=== PATIENT | male | born 1945 | race Caucasian/White ===

== ENCOUNTER 2017-12-03 04:00 | Inpatient (IN) ==
[~2017-12-03 04:00] MED LIST: DEXTROSE 50% 25 GM/50 ML VIAL IV PRN; GLUCAGON 1 MG VIAL IM PRN; NITROGLYCERIN SL 0.4 MG TABLET SL PRN
[2017-12-03 14:56] LABS: Basophils # 0.1 10*3/uL (0.0-0.2); Basophils % 1.3 % (0.0-0.8); Eosinophils # 0.2 10*3/uL (0.0-0.87); Eosinophils % 2.4 % (0.00-10.9); Hemoglobin 15.1 GM/DL (14.0-18.0); Immature Granulocytes % 0.5 %; Immature Granulocytes Absolute 0.04 #; Lymphocytes # 1.7 10*3/uL (1.4-4.0); Lymphocytes % 21.5 % (21.2-54.2); Mean Corpuscular HGB Conc 33.6 GM/DL (32-36); Mean Corpuscular Hemoglobin 32 PG (27-34); Mean Corpuscular Volume 94.5 FL (87-102); Mean Platelet Volume 9.7 FL (9.6-12.0); Monocytes # 0.6 10*3/uL (0.11-0.8); Monocytes % 7.8 % (1.7-12.7); Neutrophils # 5.3 10*3/uL (1.4-7.4); Neutrophils % 66.5 % (38.7-73.9); Platelet Count 187 T/CUMM (130-400); Red Blood Count 4.76 MC/CUMM (3.8-5.5); Red Cell Distribution Width 12.8 % (9.3-17.3); White Blood Count 7.9 T/CUMM (4-12)
[2017-12-03] MEDS ORDERED: SODIUM CHLORIDE 0.9% 1,000 ML IV SCH (15:00)
[2017-12-03 15:36] LABS: Bilirubin,Total 0.4 MG/DL (0.2-1.0); Calcium 8.8 MG/DL (8.5-10.1); Osmolality,Calculated 282.4 MOS/KG (273-304)
[2017-12-03 16:26] LABS: ABG Base Excess 0.8 MMOL/L (-2.5-2.5); ABG HCO3 24.6 MMOL/L (20-26); ABG Oxygen Saturation 95.8 % (95-100); ABG PCO2 36.9 MM HG (35-48); ABG PH 7.441 (7.35-7.45); ABG PO2 80.2 MM HG (80-95); ABG TCO2 25.7 MMOL/L (23-27)
[2017-12-03] MEDS: ROSUVASTATIN 10 MG TABLET PO SCH ×2 (16:45→21:16)
[2017-12-03] MEDS: MONTELUKAST 10 MG TABLET PO SCH ×2 (16:45→21:16)
[2017-12-03] MEDS: SERTRALINE 100 MG TABLET PO SCH ×2 (16:45→21:16)
[2017-12-03] MEDS: amLODIPine 5 MG TABLET PO SCH (16:45)
[2017-12-03] MEDS: ASPIRIN 325 MG TABLET PO SCH (16:46)
[2017-12-03] MEDS: TRANDOLAPRIL 2 MG TABLET PO SCH (16:46)
[2017-12-03] MEDS: CHLORHEXIDINE 4% SOLN 118 ML BOTTLE TOP SCH ×2 (16:47→21:17)
[2017-12-03] MEDS: DRONEDARONE 400 MG TABLET PO SCH (17:05)
[2017-12-03] MEDS ORDERED: ZALEPLON 5 MG CAPSULE PO SCH (21:00)
[2017-12-03] MEDS: ISOSORBIDE MONONITRATE 20 MG TABLET PO SCH (21:16)
[2017-12-03] MEDS: HYDROXYCHLOROQUINE 200 MG TABLET PO SCH (21:16)
[2017-12-03] MEDS: CHLORHEXIDINE 0.12% ORAL RINSE 60 ML BOTTLE SWISH/SPIT SCH (21:16)
[2017-12-03] MEDS: CARVEDILOL 25 MG TABLET PO SCH (21:17)
[2017-12-04] MEDS ORDERED: VANCOMYCIN 1,000 MG VIAL ONE (04:52)
[2017-12-04] MEDS ORDERED: PAPAVERINE 60 MG/2 ML VIAL ONE (04:52)
[2017-12-04] MEDS: CHLORHEXIDINE 4% SOLN 118 ML BOTTLE TOP SCH ×2 (05:27→09:59)
[2017-12-04] MEDS ORDERED: FAMOTIDINE 20 MG TABLET PO ONE (05:30)
[2017-12-04] MEDS ORDERED: DIAZEPAM 5 MG TABLET PO ONE ×2 (05:30→06:00)
[2017-12-04] MEDS ORDERED: MIDAZOLAM 10 MG/2 ML VIAL ONE (05:34)
[2017-12-04] MEDS ORDERED: SUFentanil 250 MCG/5 ML AMP ONE (05:34)
[2017-12-04] MEDS ORDERED: CEFUROXIME INJ 1,500 MG in SYRINGE 1 EACH IV ONE (06:00)
[2017-12-04 07:42] LABS: ABG HCO3 21.9 MMOL/L (20-26); ABG Oxygen Saturation 99.5 % (95-100); ABG PCO2 47.4 MM HG (35-48); ABG PH 7.309 (7.35-7.45); ABG TCO2 20.6 MMOL/L (23-27); Glucose Heart Surgery 109 MG/DL (74-106); Hematocrit Heart Surgery 45.1 PERCENT (42-52); Hemoglobin Heart Surgery 14.7 G/DL (14.0-18.0); Ionized Calcium Arterial 1.19 MMOL/L (1.21-1.46); PCO2 Patient Temp Arterial 47.4 MMHG; PH Patient Temp Arterial 7.309; Patient Temperature 37 CELCIUS; Potassium Heart/CVR 3.9 MMOL/L (3.5-5.1); Sodium Heart/CVR 139 MMOL/L (135-145)
[2017-12-04 09:24] LABS: Hematocrit Heart Surgery 35.6 PERCENT (42-52); Hemoglobin Heart Surgery 11.6 G/DL (14.0-18.0); PCO2 Patient Temp Venous 36.1 MM HG; PH Patient Temp Venous 7.431; Potassium Heart/CVR 4.9 MMOL/L (3.5-5.1); VBG Base Excess 0.1 MEQ/L (0-4); VBG HCO3 24.2 MEQ/L (24-28); VBG Oxygen Saturation 84.1 %; VBG PCO2 39.8 MMHG (41-51); VBG PH 7.402; VBG PO2 47.1 MMHG (17-40)
[2017-12-04 09:53] LABS: Hematocrit Heart Surgery 38.7 PERCENT (42-52); Hemoglobin Heart Surgery 12.6 G/DL (14.0-18.0); PCO2 Patient Temp Venous 32.3 MM HG; PH Patient Temp Venous 7.468; VBG Base Excess 0.3 MEQ/L (0-4); VBG HCO3 24.4 MEQ/L (24-28); VBG Oxygen Saturation 84.2 %; VBG PCO2 37.3 MMHG (41-51); VBG PH 7.424; VBG PO2 46.8 MMHG (17-40)
[2017-12-04] MEDS: DRONEDARONE 400 MG TABLET PO SCH (09:58)
[2017-12-04] MEDS: amLODIPine 5 MG TABLET PO SCH (09:58)
[2017-12-04] MEDS: TRANDOLAPRIL 2 MG TABLET PO SCH (09:59)
[2017-12-04] MEDS: CARVEDILOL 25 MG TABLET PO SCH (09:59)
[2017-12-04] MEDS: ISOSORBIDE MONONITRATE 20 MG TABLET PO SCH (09:59)
[2017-12-04] MEDS: ASPIRIN 325 MG TABLET PO SCH (09:59)
[2017-12-04] MEDS: CHLORHEXIDINE 0.12% ORAL RINSE 60 ML BOTTLE SWISH/SPIT SCH ×2 (10:01→21:29)
[2017-12-04] MEDS: HYDROXYCHLOROQUINE 200 MG TABLET PO SCH (10:02)
[2017-12-04] MEDS ORDERED: THROMBIN TOPICAL (RECOMBINANT) 5,000 UNIT VIAL TOP ONE (10:57)
[2017-12-04] MEDS ORDERED: ALBUMIN 25% 25 GM/100 ML VIAL IV ONE (11:03)
[2017-12-04] MEDS ORDERED: SODIUM BICARBONATE 50 MEQ/50 ML SYRINGE IV ONE ×2 (11:03→11:30)
[2017-12-04] MEDS ORDERED: PROTAMINE SULFATE 250 MG/25 ML VIAL IV ONE ×2 (11:03→12:29)
[2017-12-04] MEDS ORDERED: DEXTROSE 5% KCL 20 MEQ 20 MEQ/1,000 ML BAG IV ONE (11:03)
[2017-12-04] MEDS ORDERED: MANNITOL 12.5 GM/50 ML VIAL IV ONE (11:04)
[2017-12-04] MEDS ORDERED: MAGNESIUM SULFATE 1 GM/2 ML VIAL ONE (11:04)
[2017-12-04] MEDS ORDERED: HEPARIN 10,000 UNIT/10 ML VIAL ONE (11:04)
[2017-12-04] MEDS ORDERED: FUROSEMIDE 20 MG/2 ML VIAL ONE (11:04)
[2017-12-04] MEDS ORDERED: methylPREDNISolone SOD SUC 1,000 MG/8 ML VIAL ONE (11:04)
[2017-12-04] MEDS ORDERED: PHENYLEPHRINE DRIP 20 MG/250 ML PREMIX IV ONE ×2 (11:04→12:29)
[2017-12-04 11:10] LABS: ABG Base Excess -0.8 MMOL/L (-2.5-2.5); ABG HCO3 23.8 MMOL/L (20-26); ABG Oxygen Saturation 99.3 % (95-100); ABG PCO2 36.6 MM HG (35-48); ABG PH 7.414 (7.35-7.45); ABG TCO2 20.8 MMOL/L (23-27); Glucose Heart Surgery 157 MG/DL (74-106); Hematocrit Heart Surgery 36.1 PERCENT (42-52); Hemoglobin Heart Surgery 11.7 G/DL (14.0-18.0); Ionized Calcium Arterial 1.22 MMOL/L (1.21-1.46); PCO2 Patient Temp Arterial 36.6 MMHG; PH Patient Temp Arterial 7.414; Patient Temperature 37 CELCIUS; Potassium Heart/CVR 4.2 MMOL/L (3.5-5.1); Sodium Heart/CVR 136 MMOL/L (135-145)
[2017-12-04] MEDS ORDERED: EPINEPHrine 1 MG/10 ML SYRINGE ONE (11:30)
[2017-12-04] MEDS ORDERED: POTASSIUM CHLORIDE RIDER 100 ML IV ONE (11:31)
[2017-12-04] MEDS ORDERED: ATROPINE 1 MG/10 ML SYRINGE ONE (11:31)
[2017-12-04] MEDS ORDERED: ALBUMIN 5% 12.5 GM/250 ML VIAL IV ONE (11:31)
[2017-12-04] MEDS ORDERED: CALCIUM CHLORIDE 1,000 MG/10 ML SYRINGE IV ONE (11:32)
[2017-12-04] MEDS ORDERED: PHENYLEPHRINE DRIP 40 MG/250 ML PREMIX IV ONE (11:48)
[2017-12-04 12:03] LABS: Apearance,Urine CLEAR (Clear); Bilirubin,Urine Negative (Negative); Blood, Urine Negative (Negative); Glucose,Urine (UA) Negative (Negative); Hyaline Casts,Urine 3 /LPF (0-3); Ketones,Urine Negative (Negative); Mucus,Urine Occasional /LPF (Occasional); Nitrite,Urine Negative (Negative); Protein,Urine Negative; RBC,Urine <1 /HPF (0-4); Squamous Epithelial Cell,Urine Occasional /HPF (0-10); Urine Color Yellow (Yellow); Urine Specific Gravity 1.017 (1.001-1.035); Urine Urobilinogen < 2.0 EU/DL (0.2-1.0); WBC,Urine <1 /HPF (0-6)
[2017-12-04] MEDS ORDERED: INSULIN REGULAR 100 UNIT/ML IV ONE (12:28)
[2017-12-04] MEDS ORDERED: POTASSIUM CHLORIDE RIDER 10 MEQ in PREMIX 1 EACH IV PRN (12:28)
[2017-12-04] MEDS ORDERED: PROTAMINE SULFATE 50 MG/5 ML VIAL IV ONE ×2 (12:28→12:40)
[2017-12-04] MEDS ORDERED: ACETAMINOPHEN 650 MG SUPP RECTAL PRN (12:28)
[2017-12-04] MEDS ORDERED: MAGNESIUM SULF RIDER 4 GM in PREMIX 1 EACH IV PRN (12:28)
[2017-12-04] MEDS ORDERED: VECURONIUM 10 MG VIAL IV PRN ×2 (12:28)
[2017-12-04] MEDS ORDERED: PHENYLEPHRINE DRIP 40 MG/250 ML PREMIX IV PRN (12:28)
[2017-12-04] MEDS ORDERED: DEXTROSE 50% 25 GM/50 ML VIAL IV PRN ×2 (12:28)
[2017-12-04] MEDS ORDERED: MIDAZOLAM 2 MG/2 ML VIAL IV PRN (12:28)
[2017-12-04] MEDS ORDERED: INSULIN REGULAR 100 UNIT/ML IV PRN (12:28)
[2017-12-04] MEDS ORDERED: MORPHINE 2 MG/1 ML SYRINGE IV PRN (12:28)
[2017-12-04] MEDS ORDERED: NITROPRUSSIDE 100 MG in DEXTROSE 5% 250 ML IV PRN (12:28)
[2017-12-04] MEDS ORDERED: ONDANSETRON 4 MG/2 ML VIAL IV PRN (12:28)
[2017-12-04] MEDS ORDERED: MAGNESIUM SULF RIDER 2 GM in PREMIX 1 EACH IV PRN (12:28)
[2017-12-04] MEDS ORDERED: CALCIUM CHLORIDE 1,000 MG/10 ML SYRINGE IV PRN (12:28)
[2017-12-04] MEDS ORDERED: MIDAZOLAM 10 MG/2 ML VIAL IV PRN (12:28)
[2017-12-04] MEDS ORDERED: MORPHINE 10 MG/1 ML VIAL IV PRN (12:28)
[2017-12-04] MEDS ORDERED: SEVOFLURANE 1 UNIT/15 MINUTE INH ONE (12:29)
[2017-12-04] MEDS ORDERED: CALCIUM CHLORIDE 1,000 MG/10 ML VIAL IV ONE (12:29)
[2017-12-04] MEDS ORDERED: TRANEXAMIC ACID 1,000 MG/10 ML VIAL IV ONE (12:30)
[2017-12-04] MEDS ORDERED: SODIUM CHLORIDE 0.45% 1,000 ML IV SCH ×2 (12:30)
[2017-12-04] MEDS: LACTATED RINGERS 250 ML IV PRN ×6 (12:30→14:34)
[2017-12-04] MEDS ORDERED: INSULIN REGULAR DRIP 100 ML IV SCH (12:30)
[2017-12-04] MEDS ORDERED: SUFentanil 50 MCG/ML AMP ONE (12:30)
[2017-12-04] MEDS ORDERED: SODIUM CHLORIDE 0.9% 1,000 ML IV ONE (12:31)
[2017-12-04] MEDS ORDERED: ETOMIDATE 40 MG/20 ML VIAL IV ONE (12:31)
[2017-12-04] MEDS: ALBUMIN 5% 12.5 GM in PREMIX 1 EACH IV PRN ×3 (12:35→16:00)
[2017-12-04 12:45] LABS: ABG Base Excess -3.7 MMOL/L (-2.5-2.5); ABG HCO3 21.4 MMOL/L (20-26); ABG PCO2 39.9 MM HG (35-48); ABG PH 7.344 (7.35-7.45); ABG TCO2 19.7 MMOL/L (23-27); Glucose Heart Surgery 153 MG/DL (74-106); Hematocrit Heart Surgery 33.2 PERCENT (42-52); Hemoglobin Heart Surgery 10.8 G/DL (14.0-18.0); Potassium Heart/CVR 3.5 MMOL/L (3.5-5.1)
[2017-12-04 12:51] LABS: Basophils # 0.1 10*3/uL (0.0-0.2); Basophils % 0.5 % (0.0-0.8); Eosinophils # 0.1 10*3/uL (0.0-0.87); Eosinophils % 1.2 % (0.00-10.9); Hematocrit 32.2 VOL% (42.0-52.0); Immature Granulocytes % 0.6 %; Immature Granulocytes Absolute 0.06 #; Lymphocytes # 0.9 10*3/uL (1.4-4.0); Lymphocytes % 8.2 % (21.2-54.2); Mean Corpuscular HGB Conc 34.5 GM/DL (32-36); Mean Corpuscular Hemoglobin 32 PG (27-34); Mean Corpuscular Volume 93.9 FL (87-102); Mean Platelet Volume 10.3 FL (9.6-12.0); Monocytes # 0.5 10*3/uL (0.11-0.8); Monocytes % 4.9 % (1.7-12.7); Neutrophils # 9.1 10*3/uL (1.4-7.4); Neutrophils % 84.6 % (38.7-73.9); Red Cell Distribution Width 12.8 % (9.3-17.3)
[2017-12-04 12:55] LABS: INR 1.1; PT Patient Result 11.8 SECS; Partial Thromboplastin Time 28.3 SECS (0-40)
[2017-12-04] MEDS: POTASSIUM CHLORIDE RIDER 20 MEQ in PREMIX 1 EACH IV PRN ×4 (12:55→22:15)
[2017-12-04 12:56] LABS: Hemoglobin 11.1 GM/DL (14.0-18.0); Platelet Count 163 T/CUMM (130-400); Red Blood Count 3.43 MC/CUMM (3.8-5.5); White Blood Count 10.8 T/CUMM (4-12)
[2017-12-04 13:21] LABS: CKMB % 7.2 %
[2017-12-04 13:23] LABS: Troponin I Only 3.4 NG/ML (0.00-0.045)
[2017-12-04] MEDS: KETOROLAC 30 MG/1 ML VIAL IV SCH ×2 (13:30→19:10)
[2017-12-04 13:32] LABS: Bilirubin,Total 0.8 MG/DL (0.2-1.0); Osmolality,Calculated 286.1 MOS/KG (273-304); Potassium 3.8 MMOL/L (3.5-5.1); Total Protein 4.6 G/DL (6.4-8.3)
[2017-12-04 15:06] LABS: ABG Base Excess -1.9 MMOL/L (-2.5-2.5); ABG HCO3 22.8 MMOL/L (20-26); ABG Oxygen Saturation 97.2 % (95-100); ABG PCO2 43.2 MM HG (35-48); ABG PH 7.349 (7.35-7.45); ABG PO2 95.7 MM HG (80-95); ABG TCO2 21.5 MMOL/L (23-27); Glucose Heart Surgery 167 MG/DL (74-106); Hematocrit Heart Surgery 34.1 PERCENT (42-52); Potassium Heart/CVR 4.6 MMOL/L (3.5-5.1)
[2017-12-04] MEDS ORDERED: LACTATED RINGERS 500 ML IV ONE (16:30)
[2017-12-04 17:09] LABS: ABG Base Excess -2.8 MMOL/L (-2.5-2.5); ABG HCO3 22.1 MMOL/L (20-26); ABG Oxygen Saturation 97.8 % (95-100); ABG PCO2 44.4 MM HG (35-48); ABG PH 7.327 (7.35-7.45); ABG TCO2 21.2 MMOL/L (23-27); Glucose Heart Surgery 164 MG/DL (74-106); Hematocrit Heart Surgery 31.8 PERCENT (42-52); Hemoglobin Heart Surgery 10.3 G/DL (14.0-18.0); Potassium Heart/CVR 4.3 MMOL/L (3.5-5.1)
[2017-12-04] MEDS ORDERED: FUROSEMIDE 40 MG/4 ML VIAL IV ONE (17:43)
[2017-12-04 21:13] LABS: ABG Base Excess -1.5 MMOL/L (-2.5-2.5); ABG HCO3 23.1 MMOL/L (20-26); ABG Oxygen Saturation 96.6 % (95-100); ABG PO2 83.1 MM HG (80-95); ABG TCO2 21.6 MMOL/L (23-27); Glucose Heart Surgery 157 MG/DL (74-106); Hematocrit Heart Surgery 31.2 PERCENT (42-52); Hemoglobin Heart Surgery 10.1 G/DL (14.0-18.0); Potassium Heart/CVR 3.9 MMOL/L (3.5-5.1)
[2017-12-04] MEDS: CEFUROXIME INJ 1,500 MG in SYRINGE 1 EACH IV SCH (21:29)
[2017-12-04 21:53] LABS: CKMB % 5.4 %
[2017-12-04 21:57] LABS: Troponin I Only 2.69 NG/ML (0.00-0.045)
[2017-12-05] MEDS: KETOROLAC 30 MG/1 ML VIAL IV SCH ×5 (00:33→22:05)
[2017-12-05 04:12] LABS: ABG Base Excess -1.2 MMOL/L (-2.5-2.5); ABG HCO3 23.3 MMOL/L (20-26); ABG Oxygen Saturation 93.7 % (95-100); ABG PCO2 43.4 MM HG (35-48); ABG PH 7.357 (7.35-7.45); ABG PO2 69.7 MM HG (80-95); ABG TCO2 22.4 MMOL/L (23-27); Glucose Heart Surgery 148 MG/DL (74-106); Hematocrit Heart Surgery 29.1 PERCENT (42-52); Hemoglobin Heart Surgery 9.4 G/DL (14.0-18.0); Potassium Heart/CVR 4.2 MMOL/L (3.5-5.1)
[2017-12-05 04:20] LABS: Basophils % 0.1 % (0.0-0.8); Hematocrit 26.5 VOL% (42.0-52.0); Hemoglobin 9.4 GM/DL (14.0-18.0); Immature Granulocytes % 0.6 %; Immature Granulocytes Absolute 0.06 #; Lymphocytes # 0.6 10*3/uL (1.4-4.0); Lymphocytes % 5.2 % (21.2-54.2); Mean Corpuscular HGB Conc 35.5 GM/DL (32-36); Mean Corpuscular Hemoglobin 33 PG (27-34); Mean Corpuscular Volume 93.6 FL (87-102); Mean Platelet Volume 10.5 FL (9.6-12.0); Monocytes # 0.5 10*3/uL (0.11-0.8); Monocytes % 4.8 % (1.7-12.7); Neutrophils # 9.7 10*3/uL (1.4-7.4); Neutrophils % 89.3 % (38.7-73.9); Platelet Count 124 T/CUMM (130-400); Red Blood Count 2.83 MC/CUMM (3.8-5.5); White Blood Count 10.9 T/CUMM (4-12)
[2017-12-05] MEDS: POTASSIUM CHLORIDE RIDER 20 MEQ in PREMIX 1 EACH IV PRN (04:49)
[2017-12-05 04:52] LABS: Albumin 3.7 G/DL (3.4-5.0); Bilirubin,Direct 0.2 MG/DL (0.0-0.20); Bilirubin,Total 0.7 MG/DL (0.2-1.0); Calcium 8.1 MG/DL (8.5-10.1); Osmolality,Calculated 286.1 MOS/KG (273-304); Potassium 4.3 MMOL/L (3.5-5.1); Total Protein 5.6 G/DL (6.4-8.3)
[2017-12-05 04:59] LABS: Basophils % 0.2 % (0.0-0.8); Hematocrit 27.5 VOL% (42.0-52.0); Hemoglobin 9.1 GM/DL (14.0-18.0); Immature Granulocytes % 0.4 %; Immature Granulocytes Absolute 0.04 #; Lymphocytes # 0.6 10*3/uL (1.4-4.0); Lymphocytes % 5.2 % (21.2-54.2); Mean Corpuscular HGB Conc 33.1 GM/DL (32-36); Mean Corpuscular Hemoglobin 32 PG (27-34); Mean Corpuscular Volume 95.8 FL (87-102); Mean Platelet Volume 10.5 FL (9.6-12.0); Monocytes # 0.5 10*3/uL (0.11-0.8); Monocytes % 4.9 % (1.7-12.7); Neutrophils # 9.6 10*3/uL (1.4-7.4); Neutrophils % 89.3 % (38.7-73.9); Platelet Count 123 T/CUMM (130-400); Red Blood Count 2.87 MC/CUMM (3.8-5.5); Red Cell Distribution Width 12.9 % (9.3-17.3); White Blood Count 10.7 T/CUMM (4-12)
[2017-12-05 05:12] LABS: CKMB % 3.9 %
[2017-12-05 05:27] LABS: Troponin I Only 1.48 NG/ML (0.00-0.045)
[2017-12-05] MEDS ORDERED: FUROSEMIDE 40 MG/4 ML VIAL IV ONE (05:30)
[2017-12-05] MEDS ORDERED: ZALEPLON 5 MG CAPSULE PO PRN (06:26)
[2017-12-05] MEDS: CEFUROXIME INJ 1,500 MG in SYRINGE 1 EACH IV SCH (08:28)
[2017-12-05] MEDS: amLODIPine 5 MG TABLET PO SCH (08:29)
[2017-12-05] MEDS: DRONEDARONE 400 MG TABLET PO SCH ×2 (08:29→17:42)
[2017-12-05] MEDS: HYDROXYCHLOROQUINE 200 MG TABLET PO SCH ×2 (08:29→20:45)
[2017-12-05] MEDS: CHLORHEXIDINE 0.12% ORAL RINSE 60 ML BOTTLE SWISH/SPIT SCH ×3 (08:31→20:45)
[2017-12-05] MEDS ORDERED: MAGNESIUM SULF RIDER 2 GM in PREMIX 1 EACH IV PRN (10:18)
[2017-12-05] MEDS ORDERED: GLUCAGON 1 MG VIAL IM PRN ×2 (10:18)
[2017-12-05] MEDS ORDERED: MORPHINE 4 MG/1 ML VIAL IV PRN (10:18)
[2017-12-05] MEDS ORDERED: oxyCODONE/ACETAMINOPHEN 5-325 MG TABLET PO PRN (10:18)
[2017-12-05] MEDS ORDERED: MAGNESIUM HYDROXIDE SUSP 30 ML UDCUP PO PRN (10:18)
[2017-12-05] MEDS ORDERED: ACETAMINOPHEN 325 MG TABLET PO PRN (10:18)
[2017-12-05] MEDS ORDERED: ONDANSETRON 4 MG/2 ML VIAL IV PRN (10:18)
[2017-12-05] MEDS ORDERED: MAGNESIUM SULF RIDER 4 GM in PREMIX 1 EACH IV PRN (10:18)
[2017-12-05] MEDS ORDERED: SODIUM CHLOR 0.45% KCL 20 MEQ 20 MEQ/1,000 ML BAG IV SCH (10:18)
[2017-12-05] MEDS ORDERED: DEXTROSE 50% 25 GM/50 ML VIAL IV PRN ×2 (10:18)
[2017-12-05] MEDS ORDERED: POTASSIUM CHLORIDE 20 MEQ TABLET PO PRN (10:18)
[2017-12-05] MEDS ORDERED: ALUMINUM/MAGNES/SIMETH MAX STR 30 ML UDCUP PO PRN (10:18)
[2017-12-05] MEDS: FERROUS SULFATE 325 MG TABLET PO SCH (14:25)
[2017-12-05] MEDS: PANTOPRAZOLE 40 MG TABLET PO SCH (14:25)
[2017-12-05] MEDS: ASPIRIN EC 325 MG TABLET PO SCH (14:26)
[2017-12-05] MEDS: DOCUSATE SODIUM 100 MG CAPSULE PO SCH (14:26)
[2017-12-05] MEDS: SERTRALINE 100 MG TABLET PO SCH (20:44)
[2017-12-05] MEDS: MONTELUKAST 10 MG TABLET PO SCH (20:45)
[2017-12-05] MEDS: ROSUVASTATIN 10 MG TABLET PO SCH (20:45)
[2017-12-05] MEDS: ZOLPIDEM 5 MG TABLET PO PRN (22:05)
[2017-12-06 05:27] LABS: Basophils % 0.1 % (0.0-0.8); Hemoglobin 8.1 GM/DL (14.0-18.0); Immature Granulocytes % 0.7 %; Immature Granulocytes Absolute 0.08 #; Lymphocytes # 0.8 10*3/uL (1.4-4.0); Lymphocytes % 6.6 % (21.2-54.2); Mean Corpuscular HGB Conc 33.8 GM/DL (32-36); Mean Corpuscular Hemoglobin 32 PG (27-34); Mean Corpuscular Volume 94.5 FL (87-102); Mean Platelet Volume 11.2 FL (9.6-12.0); Monocytes # 0.9 10*3/uL (0.11-0.8); Monocytes % 7.9 % (1.7-12.7); Neutrophils # 9.7 10*3/uL (1.4-7.4); Neutrophils % 84.7 % (38.7-73.9); Platelet Count 134 T/CUMM (130-400); Red Blood Count 2.54 MC/CUMM (3.8-5.5); Red Cell Distribution Width 13.3 % (9.3-17.3); White Blood Count 11.5 T/CUMM (4-12)
[2017-12-06] MEDS: KETOROLAC 30 MG/1 ML VIAL IV SCH ×4 (05:43→22:17)
[2017-12-06 05:44] LABS: Alanine Aminotransferase 15 U/L (16-61); Albumin 3.3 G/DL (3.4-5.0); Alkaline Phosphatase 42 U/L (45-117); Aspartate Amino Transferase 23 U/L (0-37); Bilirubin,Indirect 0.9 MG/DL (0.0-1.0); Blood Urea Nitrogen 26 MG/DL (7-18); Calcium 7.9 MG/DL (8.5-10.1); Glucose 112 MG/DL (74-106); Osmolality,Calculated 288.1 MOS/KG (273-304); Potassium 4.5 MMOL/L (3.5-5.1); Sodium 142 MMOL/L (136-145); Total Protein 5.1 G/DL (6.4-8.3)
[2017-12-06 05:45] LABS: Troponin I Only 0.755 NG/ML (0.00-0.045)
[2017-12-06] MEDS ORDERED: FUROSEMIDE 40 MG/4 ML VIAL IV ONE (06:00)
[2017-12-06] MEDS: amLODIPine 5 MG TABLET PO SCH (08:20)
[2017-12-06] MEDS: FERROUS SULFATE 325 MG TABLET PO SCH (08:20)
[2017-12-06] MEDS: ASPIRIN EC 325 MG TABLET PO SCH (08:20)
[2017-12-06] MEDS: HYDROXYCHLOROQUINE 200 MG TABLET PO SCH ×2 (08:20→21:05)
[2017-12-06] MEDS: DRONEDARONE 400 MG TABLET PO SCH ×2 (08:20→17:00)
[2017-12-06] MEDS: DOCUSATE SODIUM 100 MG CAPSULE PO SCH (08:20)
[2017-12-06] MEDS: PANTOPRAZOLE 40 MG TABLET PO SCH (08:20)
[2017-12-06] MEDS: CHLORHEXIDINE 0.12% ORAL RINSE 60 ML BOTTLE SWISH/SPIT SCH ×2 (08:21→21:05)
[2017-12-06] MEDS: SERTRALINE 100 MG TABLET PO SCH (21:05)
[2017-12-06] MEDS: MONTELUKAST 10 MG TABLET PO SCH (21:05)
[2017-12-06] MEDS: ROSUVASTATIN 10 MG TABLET PO SCH (21:05)
[2017-12-06] MEDS: ZOLPIDEM 5 MG TABLET PO PRN (22:17)
[2017-12-07] MEDS: KETOROLAC 30 MG/1 ML VIAL IV SCH ×4 (06:00→21:47)
[2017-12-07 06:18] LABS: Basophils % 0.2 % (0.0-0.8); Eosinophils % 0.3 % (0.00-10.9); Hematocrit 24.8 VOL% (42.0-52.0); Hemoglobin 8.1 GM/DL (14.0-18.0); Immature Granulocytes % 0.7 %; Immature Granulocytes Absolute 0.09 #; Lymphocytes # 1.6 10*3/uL (1.4-4.0); Lymphocytes % 13.1 % (21.2-54.2); Mean Corpuscular HGB Conc 32.7 GM/DL (32-36); Mean Corpuscular Hemoglobin 31 PG (27-34); Mean Corpuscular Volume 96.1 FL (87-102); Mean Platelet Volume 11.1 FL (9.6-12.0); Monocytes # 0.9 10*3/uL (0.11-0.8); Neutrophils # 9.5 10*3/uL (1.4-7.4); Neutrophils % 78.7 % (38.7-73.9); Platelet Count 154 T/CUMM (130-400); Red Blood Count 2.58 MC/CUMM (3.8-5.5); Red Cell Distribution Width 13.3 % (9.3-17.3); White Blood Count 12.1 T/CUMM (4-12)
[2017-12-07 06:44] LABS: Alanine Aminotransferase 17 U/L (16-61); Albumin 3.4 G/DL (3.4-5.0); Alkaline Phosphatase 47 U/L (45-117); Aspartate Amino Transferase 19 U/L (0-37); Bilirubin,Indirect 0.9 MG/DL (0.0-1.0); Blood Urea Nitrogen 17 MG/DL (7-18); Calcium 8.2 MG/DL (8.5-10.1); Glucose 87 MG/DL (74-106); Potassium 3.9 MMOL/L (3.5-5.1); Sodium 143 MMOL/L (136-145); Total Protein 5.6 G/DL (6.4-8.3)
[2017-12-07] MEDS: ASPIRIN EC 325 MG TABLET PO SCH (08:58)
[2017-12-07] MEDS: PANTOPRAZOLE 40 MG TABLET PO SCH (08:58)
[2017-12-07] MEDS: HYDROXYCHLOROQUINE 200 MG TABLET PO SCH ×2 (08:58→21:45)
[2017-12-07] MEDS: amLODIPine 5 MG TABLET PO SCH (08:58)
[2017-12-07] MEDS: DRONEDARONE 400 MG TABLET PO SCH ×2 (08:58→18:01)
[2017-12-07] MEDS: FERROUS SULFATE 325 MG TABLET PO SCH (08:58)
[2017-12-07] MEDS: DOCUSATE SODIUM 100 MG CAPSULE PO SCH (08:58)
[2017-12-07] MEDS: CHLORHEXIDINE 0.12% ORAL RINSE 60 ML BOTTLE SWISH/SPIT SCH ×2 (08:59→21:47)
[2017-12-07] MEDS: SERTRALINE 100 MG TABLET PO SCH (21:45)
[2017-12-07] MEDS: ZOLPIDEM 5 MG TABLET PO PRN (21:45)
[2017-12-07] MEDS: MONTELUKAST 10 MG TABLET PO SCH (21:45)
[2017-12-07] MEDS: ROSUVASTATIN 10 MG TABLET PO SCH (21:45)
[2017-12-08] MEDS: KETOROLAC 30 MG/1 ML VIAL IV SCH (05:06)
[2017-12-08] MEDS: PANTOPRAZOLE 40 MG TABLET PO SCH (08:53)
[2017-12-08] MEDS: FERROUS SULFATE 325 MG TABLET PO SCH (08:53)
[2017-12-08] MEDS: amLODIPine 5 MG TABLET PO SCH (08:53)
[2017-12-08] MEDS: DOCUSATE SODIUM 100 MG CAPSULE PO SCH (08:53)
[2017-12-08] MEDS: DRONEDARONE 400 MG TABLET PO SCH (08:53)
[2017-12-08] MEDS: ASPIRIN EC 325 MG TABLET PO SCH (08:53)
[2017-12-08] MEDS: HYDROXYCHLOROQUINE 200 MG TABLET PO SCH (08:54)
[2017-12-08] MEDS: CHLORHEXIDINE 0.12% ORAL RINSE 60 ML BOTTLE SWISH/SPIT SCH (08:54)
[2017-12-08 11:29] VITALS: BP 116/80
== END 2017-12-08 13:38 | disposition home health service (06) | DRG 236 ==
LOC: N.TELES 14:40 → N.CVR 12-04 08:01 → N.TELES 12-05 08:52

== ENCOUNTER 2020-10-17 14:51 | Inpatient (IN) ==
[2020-10-17 15:39] LABS: Basophils % 0.2 % (0.0-0.8); Hematocrit 36.4 VOL% (42.0-52.0); Hemoglobin 11.8 GM/DL (14.0-18.0); Immature Granulocytes % 0.7 %; Immature Granulocytes Absolute 0.08 #; Lymphocytes # 0.4 10*3/uL (1.4-4.0); Lymphocytes % 3.7 % (21.2-54.2); Mean Corpuscular HGB Conc 32.4 GM/DL (32-36); Mean Corpuscular Volume 98.6 FL (87-102); Monocytes % 5.4 % (1.7-12.7); Platelet Count 264 T/CUMM (130-400); Red Blood Count 3.69 MC/CUMM (3.8-5.5); Red Cell Distribution Width 13.7 % (9.3-17.3); White Blood Count 11.9 T/CUMM (4-12)
[2020-10-17 15:52] LABS: Bilirubin,Total 1.3 MG/DL (0.2-1.0); Calcium 8.6 MG/DL (8.5-10.1); Ferritin 549.3 ng/ml (26-388); Osmolality,Calculated 279.7 MOS/KG (273-304); Potassium 4.4 MMOL/L (3.5-5.1); Total Protein 6.7 G/DL (6.4-8.3)
[2020-10-17 16:28] LABS: Band Neutrophils 1 % (0-10); Lymphocytes 4 % (20-55); Platelet Estimate Normal; Segmented Neutrophils 89 % (50-85); Total Cells Counted 100
[2020-10-17] MEDS ORDERED: FUROSEMIDE 20 MG/2 ML VIAL IV STA (16:39)
[2020-10-17] MEDS ORDERED: FUROSEMIDE 40 MG/4 ML VIAL ONE (16:58)
[2020-10-17 17:13] LABS: INR 1.8; PT Patient Result 18.3 SECS (9.8-11.9)
[2020-10-17] MEDS ORDERED: ACETAMINOPHEN 325 MG TABLET PO PRN (18:15)
[2020-10-17] MEDS ORDERED: oxyCODONE/ACETAMINOPHEN 5-325 MG TABLET PO PRN (18:15)
[2020-10-17] MEDS ORDERED: MAGNESIUM HYDROXIDE SUSP 30 ML UDCUP PO PRN (18:15)
[2020-10-17] MEDS ORDERED: ALBUTEROL 2.5 MG/3 ML NEB RESP TX PRN (18:15)
[2020-10-17] MEDS ORDERED: ONDANSETRON 4 MG/2 ML VIAL IV PRN (18:15)
[2020-10-17] MEDS: RIVAROXABAN 10 MG TABLET PO SCH (20:55)
[2020-10-17] MEDS: SERTRALINE 100 MG TABLET PO SCH (20:55)
[2020-10-17] MEDS: ASPIRIN EC 81 MG TABLET PO SCH (20:55)
[2020-10-17] MEDS: carvediloL 3.125 MG TABLET PO SCH (20:55)
[2020-10-17] MEDS: ROSUVASTATIN 10 MG TABLET PO SCH (20:55)
[2020-10-17] MEDS: HYDROXYCHLOROQUINE 200 MG TABLET PO SCH (20:55)
[2020-10-18 05:53] LABS: Basophils % 0.1 % (0.0-0.8); Eosinophils % 0.1 % (0.00-10.9); Hematocrit 35.6 VOL% (42.0-52.0); Hemoglobin 11.8 GM/DL (14.0-18.0); Immature Granulocytes % 0.9 %; Lymphocytes # 0.7 10*3/uL (1.4-4.0); Lymphocytes % 5.6 % (21.2-54.2); Mean Corpuscular HGB Conc 33.1 GM/DL (32-36); Mean Corpuscular Volume 97.3 FL (87-102); Mean Platelet Volume 10.1 FL (9.6-12.0); Monocytes % 7.1 % (1.7-12.7); Neutrophils % 86.2 % (38.7-73.9); Platelet Count 238 T/CUMM (130-400); Red Blood Count 3.66 MC/CUMM (3.8-5.5); Red Cell Distribution Width 13.8 % (9.3-17.3); White Blood Count 11.8 T/CUMM (4-12)
[2020-10-18 06:26] LABS: Bilirubin,Total 1.3 MG/DL (0.2-1.0); Calcium 9.1 MG/DL (8.5-10.1); Total Protein 6.6 G/DL (6.4-8.3)
[2020-10-18 06:27] LABS: Osmolality,Calculated 282.4 MOS/KG (273-304); Potassium 4.4 MMOL/L (3.5-5.1)
[2020-10-18] MEDS: FUROSEMIDE 40 MG/4 ML VIAL IV SCH ×2 (08:46→20:38)
[2020-10-18] MEDS ORDERED: FUROSEMIDE 20 MG TABLET PO SCH (09:00)
[2020-10-18] MEDS: FOLIC ACID 1 MG TABLET PO SCH (10:00)
[2020-10-18] MEDS: CYANOCOBALAMIN 500 MCG TABLET PO SCH (10:00)
[2020-10-18] MEDS: AMIODARONE 200 MG TABLET PO SCH (10:01)
[2020-10-18] MEDS: PANTOPRAZOLE 40 MG TABLET PO SCH (10:02)
[2020-10-18] MEDS: HYDROXYCHLOROQUINE 200 MG TABLET PO SCH ×2 (10:03→20:45)
[2020-10-18] MEDS: DOCUSATE SODIUM 100 MG CAPSULE PO SCH (10:03)
[2020-10-18] MEDS: carvediloL 3.125 MG TABLET PO SCH ×2 (10:03→17:49)
[2020-10-18] MEDS: DEXAMETHASONE 4 MG/1 ML VIAL IV SCH (10:04)
[2020-10-18] MEDS ORDERED: SPIRONOLACTONE 25 MG TABLET PO SCH (10:32)
[2020-10-18] MEDS: predniSONE 10 MG TABLET PO SCH (10:36)
[2020-10-18] MEDS: cefTRIAXone 1,000 MG in SYRINGE 1 EACH IV SCH (17:49)
[2020-10-18] MEDS: ROSUVASTATIN 10 MG TABLET PO SCH (20:38)
[2020-10-18] MEDS: SERTRALINE 100 MG TABLET PO SCH (20:38)
[2020-10-18] MEDS: ASPIRIN EC 81 MG TABLET PO SCH (20:38)
[2020-10-18] MEDS: RIVAROXABAN 10 MG TABLET PO SCH (20:38)
[2020-10-19 05:33] LABS: Basophils % 0.1 % (0.0-0.8); Hematocrit 36.5 VOL% (42.0-52.0); Hemoglobin 12.2 GM/DL (14.0-18.0); Immature Granulocytes % 0.5 %; Immature Granulocytes Absolute 0.07 #; Lymphocytes # 0.5 10*3/uL (1.4-4.0); Lymphocytes % 3.7 % (21.2-54.2); Mean Corpuscular HGB Conc 33.4 GM/DL (32-36); Mean Corpuscular Volume 94.6 FL (87-102); Mean Platelet Volume 9.8 FL (9.6-12.0); Monocytes % 6.7 % (1.7-12.7); Platelet Count 277 T/CUMM (130-400); Red Blood Count 3.86 MC/CUMM (3.8-5.5); Red Cell Distribution Width 13.8 % (9.3-17.3); White Blood Count 14.5 T/CUMM (4-12)
[2020-10-19 05:56] LABS: Calcium 8.8 MG/DL (8.5-10.1); Osmolality,Calculated 281.5 MOS/KG (273-304); Potassium 3.4 MMOL/L (3.5-5.1)
[2020-10-19 06:31] LABS: Band Neutrophils 1 % (0-10); Lymphocytes 4 % (20-55); Platelet Estimate Normal; Segmented Neutrophils 90 % (50-85); Total Cells Counted 100
[2020-10-19] MEDS: SPIRONOLACTONE 25 MG TABLET PO SCH (08:50)
[2020-10-19] MEDS: predniSONE 10 MG TABLET PO SCH (08:50)
[2020-10-19] MEDS: AMIODARONE 200 MG TABLET PO SCH (08:51)
[2020-10-19] MEDS: FOLIC ACID 1 MG TABLET PO SCH (08:51)
[2020-10-19] MEDS: carvediloL 3.125 MG TABLET PO SCH ×2 (08:51→17:01)
[2020-10-19] MEDS: DOCUSATE SODIUM 100 MG CAPSULE PO SCH (08:51)
[2020-10-19] MEDS: PANTOPRAZOLE 40 MG TABLET PO SCH (08:51)
[2020-10-19] MEDS: CYANOCOBALAMIN 500 MCG TABLET PO SCH (08:51)
[2020-10-19] MEDS: DEXAMETHASONE 4 MG/1 ML VIAL IV SCH (08:54)
[2020-10-19] MEDS: FUROSEMIDE 40 MG/4 ML VIAL IV SCH ×2 (08:58→20:47)
[2020-10-19] MEDS: HYDROXYCHLOROQUINE 200 MG TABLET PO SCH ×2 (10:24→20:47)
[2020-10-19] MEDS ORDERED: POTASSIUM CHLORIDE 20 MEQ TABLET PO ONE (10:42)
[2020-10-19] MEDS: cefTRIAXone 1,000 MG in SYRINGE 1 EACH IV SCH (17:03)
[2020-10-19] MEDS: ROSUVASTATIN 10 MG TABLET PO SCH (20:47)
[2020-10-19] MEDS: ASPIRIN EC 81 MG TABLET PO SCH (20:47)
[2020-10-19] MEDS: RIVAROXABAN 10 MG TABLET PO SCH (20:47)
[2020-10-19] MEDS: SERTRALINE 100 MG TABLET PO SCH (20:47)
[2020-10-19] MEDS ORDERED: MELATONIN 3 MG TABLET PO PRN (21:59)
[2020-10-19] MEDS ORDERED: BENZONATATE 100 MG CAPSULE PO PRN (22:00)
[2020-10-20 05:48] LABS: Basophils % 0.1 % (0.0-0.8); Eosinophils % 0.1 % (0.00-10.9); Hematocrit 39.3 VOL% (42.0-52.0); Immature Granulocytes % 0.7 %; Lymphocytes # 0.7 10*3/uL (1.4-4.0); Lymphocytes % 4.3 % (21.2-54.2); Mean Corpuscular HGB Conc 33.1 GM/DL (32-36); Mean Corpuscular Volume 95.4 FL (87-102); Mean Platelet Volume 9.9 FL (9.6-12.0); Monocytes % 5.5 % (1.7-12.7); Neutrophils % 89.3 % (38.7-73.9); Platelet Count 311 T/CUMM (130-400); Red Blood Count 4.12 MC/CUMM (3.8-5.5); Red Cell Distribution Width 13.6 % (9.3-17.3); White Blood Count 15.3 T/CUMM (4-12)
[2020-10-20 06:07] LABS: Calcium 8.9 MG/DL (8.5-10.1); Osmolality,Calculated 279.7 MOS/KG (273-304); Potassium 3.2 MMOL/L (3.5-5.1)
[2020-10-20 07:57] LABS: Lymphocytes 1 % (20-55); Platelet Estimate Normal; Polychromasia Slight; Segmented Neutrophils 94 % (50-85); Total Cells Counted 100
[2020-10-20 07:58] LABS: Ovalocytes Few
[2020-10-20] MEDS: predniSONE 10 MG TABLET PO SCH (08:16)
[2020-10-20] MEDS: DOCUSATE SODIUM 100 MG CAPSULE PO SCH (08:16)
[2020-10-20] MEDS: CYANOCOBALAMIN 500 MCG TABLET PO SCH (08:16)
[2020-10-20] MEDS: SPIRONOLACTONE 25 MG TABLET PO SCH (08:16)
[2020-10-20] MEDS: HYDROXYCHLOROQUINE 200 MG TABLET PO SCH ×2 (08:16→20:59)
[2020-10-20] MEDS: FOLIC ACID 1 MG TABLET PO SCH (08:17)
[2020-10-20] MEDS: carvediloL 3.125 MG TABLET PO SCH ×2 (08:17→16:05)
[2020-10-20] MEDS: PANTOPRAZOLE 40 MG TABLET PO SCH (08:17)
[2020-10-20] MEDS: DEXAMETHASONE 4 MG/1 ML VIAL IV SCH (08:17)
[2020-10-20] MEDS: AMIODARONE 200 MG TABLET PO SCH (08:23)
[2020-10-20] MEDS: FUROSEMIDE 40 MG/4 ML VIAL IV SCH ×2 (08:24→20:59)
[2020-10-20] MEDS ORDERED: MAGNESIUM SULF RIDER 4 GM in PREMIX 1 EACH IV PRN (08:47)
[2020-10-20] MEDS ORDERED: MAGNESIUM SULF RIDER 2 GM in PREMIX 1 EACH IV PRN (08:47)
[2020-10-20 09:26] LABS: Hepatitis B Core IgM Quant < 0.05 Index; Hepatitis B Surface Ag Quant 0.12 Index; Hepatitis B Surface Ag Result Non-Reactive (NonReactive); Hepatitis C Virus Ab Quant 0.04 Index; Hepatitis C Virus Ab Result Non-Reactive (NonReactive)
[2020-10-20] MEDS: cefTRIAXone 1,000 MG in SYRINGE 1 EACH IV SCH (16:05)
[2020-10-20] MEDS: SERTRALINE 100 MG TABLET PO SCH (20:59)
[2020-10-20] MEDS: RIVAROXABAN 10 MG TABLET PO SCH (21:00)
[2020-10-20] MEDS: ROSUVASTATIN 10 MG TABLET PO SCH (21:00)
[2020-10-20] MEDS: ASPIRIN EC 81 MG TABLET PO SCH (21:00)
[2020-10-21 06:00] LABS: Basophils % 0.1 % (0.0-0.8); Eosinophils % 0.1 % (0.00-10.9); Hematocrit 42.6 VOL% (42.0-52.0); Hemoglobin 13.7 GM/DL (14.0-18.0); Immature Granulocytes % 0.5 %; Immature Granulocytes Absolute 0.06 #; Lymphocytes # 0.8 10*3/uL (1.4-4.0); Lymphocytes % 6.2 % (21.2-54.2); Mean Corpuscular HGB Conc 32.2 GM/DL (32-36); Mean Corpuscular Volume 95.9 FL (87-102); Mean Platelet Volume 9.9 FL (9.6-12.0); Monocytes % 6.5 % (1.7-12.7); Neutrophils % 86.6 % (38.7-73.9); Platelet Count 321 T/CUMM (130-400); Red Blood Count 4.44 MC/CUMM (3.8-5.5); Red Cell Distribution Width 13.6 % (9.3-17.3)
[2020-10-21 06:19] LABS: Calcium 8.9 MG/DL (8.5-10.1); Osmolality,Calculated 281.7 MOS/KG (273-304); Potassium 3.1 MMOL/L (3.5-5.1)
[2020-10-21] MEDS: POTASSIUM CHLORIDE 20 MEQ TABLET PO PRN ×2 (06:33→09:20)
[2020-10-21] MEDS: CYANOCOBALAMIN 500 MCG TABLET PO SCH (09:14)
[2020-10-21] MEDS: carvediloL 3.125 MG TABLET PO SCH ×2 (09:14→17:50)
[2020-10-21] MEDS: PANTOPRAZOLE 40 MG TABLET PO SCH (09:14)
[2020-10-21] MEDS: DOCUSATE SODIUM 100 MG CAPSULE PO SCH (09:14)
[2020-10-21] MEDS: AMIODARONE 200 MG TABLET PO SCH (09:14)
[2020-10-21] MEDS: SPIRONOLACTONE 25 MG TABLET PO SCH (09:15)
[2020-10-21] MEDS: predniSONE 10 MG TABLET PO SCH (09:15)
[2020-10-21] MEDS: HYDROXYCHLOROQUINE 200 MG TABLET PO SCH ×2 (09:15→20:59)
[2020-10-21] MEDS: FUROSEMIDE 40 MG/4 ML VIAL IV SCH ×2 (09:19→21:01)
[2020-10-21] MEDS: FOLIC ACID 1 MG TABLET PO SCH (09:20)
[2020-10-21] MEDS: DEXAMETHASONE 4 MG/1 ML VIAL IV SCH (09:24)
[2020-10-21] MEDS: POTASSIUM CHLORIDE RIDER 10 MEQ in PREMIX 1 EACH IV SCH ×3 (14:50→17:18)
[2020-10-21] MEDS: cefTRIAXone 1,000 MG in SYRINGE 1 EACH IV SCH (16:25)
[2020-10-21] MEDS: ASPIRIN EC 81 MG TABLET PO SCH (20:59)
[2020-10-21] MEDS: RIVAROXABAN 10 MG TABLET PO SCH (20:59)
[2020-10-21] MEDS: ROSUVASTATIN 10 MG TABLET PO SCH (20:59)
[2020-10-21] MEDS: SERTRALINE 100 MG TABLET PO SCH (21:01)
[2020-10-21] MEDS ORDERED: ALUMINUM/MAGNES/SIMETH MAX STR 30 ML UDCUP PO ONE (22:55)
[2020-10-22 06:23] LABS: Basophils % 0.2 % (0.0-0.8); Eosinophils % 0.1 % (0.00-10.9); Hematocrit 46.4 VOL% (42.0-52.0); Hemoglobin 14.8 GM/DL (14.0-18.0); Immature Granulocytes % 0.7 %; Immature Granulocytes Absolute 0.09 #; Lymphocytes # 1.1 10*3/uL (1.4-4.0); Lymphocytes % 8.4 % (21.2-54.2); Mean Corpuscular HGB Conc 31.9 GM/DL (32-36); Mean Corpuscular Volume 96.9 FL (87-102); Mean Platelet Volume 9.5 FL (9.6-12.0); Monocytes % 6.9 % (1.7-12.7); Neutrophils % 83.7 % (38.7-73.9); Platelet Count 323 T/CUMM (130-400); Red Blood Count 4.79 MC/CUMM (3.8-5.5); Red Cell Distribution Width 13.5 % (9.3-17.3); White Blood Count 12.7 T/CUMM (4-12)
[2020-10-22 06:44] LABS: Calcium 8.9 MG/DL (8.5-10.1); Osmolality,Calculated 280.7 MOS/KG (273-304); Potassium 3.9 MMOL/L (3.5-5.1)
[2020-10-22] MEDS: AMIODARONE 200 MG TABLET PO SCH (09:02)
[2020-10-22] MEDS: carvediloL 3.125 MG TABLET PO SCH ×2 (09:02→17:31)
[2020-10-22] MEDS: FOLIC ACID 1 MG TABLET PO SCH (09:02)
[2020-10-22] MEDS: DEXAMETHASONE 4 MG/1 ML VIAL IV SCH (09:03)
[2020-10-22] MEDS: HYDROXYCHLOROQUINE 200 MG TABLET PO SCH ×2 (09:03→21:08)
[2020-10-22] MEDS: CYANOCOBALAMIN 500 MCG TABLET PO SCH (09:03)
[2020-10-22] MEDS: predniSONE 10 MG TABLET PO SCH (09:03)
[2020-10-22] MEDS: PANTOPRAZOLE 40 MG TABLET PO SCH (09:03)
[2020-10-22] MEDS: FUROSEMIDE 40 MG/4 ML VIAL IV SCH ×2 (09:04→21:09)
[2020-10-22] MEDS: SPIRONOLACTONE 25 MG TABLET PO SCH (09:04)
[2020-10-22] MEDS: DOCUSATE SODIUM 100 MG CAPSULE PO SCH (09:04)
[2020-10-22] MEDS: cefTRIAXone 1,000 MG in SYRINGE 1 EACH IV SCH (17:32)
[2020-10-22] MEDS: ASPIRIN EC 81 MG TABLET PO SCH (21:08)
[2020-10-22] MEDS: SERTRALINE 100 MG TABLET PO SCH (21:08)
[2020-10-22] MEDS: RIVAROXABAN 10 MG TABLET PO SCH (21:08)
[2020-10-22] MEDS: ROSUVASTATIN 10 MG TABLET PO SCH (21:08)
[2020-10-22] MEDS ORDERED: ZALEPLON 5 MG CAPSULE PO ONE (23:37)
[2020-10-23 06:58] LABS: Basophils % 0.2 % (0.0-0.8); Eosinophils % 0.2 % (0.00-10.9); Hematocrit 48.2 VOL% (42.0-52.0); Hemoglobin 16.2 GM/DL (14.0-18.0); Immature Granulocytes % 0.6 %; Immature Granulocytes Absolute 0.07 #; Lymphocytes # 1.3 10*3/uL (1.4-4.0); Lymphocytes % 10.7 % (21.2-54.2); Mean Corpuscular HGB Conc 33.6 GM/DL (32-36); Mean Corpuscular Volume 93.4 FL (87-102); Mean Platelet Volume 9.8 FL (9.6-12.0); Monocytes % 5.9 % (1.7-12.7); Neutrophils % 82.4 % (38.7-73.9); Platelet Count 319 T/CUMM (130-400); Red Blood Count 5.16 MC/CUMM (3.8-5.5); Red Cell Distribution Width 13.3 % (9.3-17.3); White Blood Count 12.5 T/CUMM (4-12)
[2020-10-23 07:19] LABS: Calcium 8.7 MG/DL (8.5-10.1); Osmolality,Calculated 283.5 MOS/KG (273-304); Potassium 3.9 MMOL/L (3.5-5.1)
[2020-10-23] MEDS: SPIRONOLACTONE 25 MG TABLET PO SCH (10:08)
[2020-10-23] MEDS: carvediloL 3.125 MG TABLET PO SCH (10:09)
[2020-10-23] MEDS: predniSONE 10 MG TABLET PO SCH (10:09)
[2020-10-23] MEDS: FOLIC ACID 1 MG TABLET PO SCH (10:09)
[2020-10-23] MEDS: PANTOPRAZOLE 40 MG TABLET PO SCH (10:10)
[2020-10-23] MEDS: AMIODARONE 200 MG TABLET PO SCH (10:10)
[2020-10-23] MEDS: CYANOCOBALAMIN 500 MCG TABLET PO SCH (10:10)
[2020-10-23] MEDS: FUROSEMIDE 40 MG/4 ML VIAL IV SCH (10:14)
[2020-10-23] MEDS: DEXAMETHASONE 4 MG/1 ML VIAL IV SCH (10:14)
[2020-10-23] MEDS: HYDROXYCHLOROQUINE 200 MG TABLET PO SCH (10:38)
[2020-10-23] MEDS: DOCUSATE SODIUM 100 MG CAPSULE PO SCH (10:39)
[2020-10-23 12:43] VITALS: BP 105/68
== END 2020-10-23 12:22 | disposition home health service (06) | DRG 291 ==
LOC: EDBD → EDUNIT# → N.ED 14:51 → N.EDINP 14:51 → N.TELEN 18:15
PROVIDERS: ADMIT Family Medicine; ATTEND Family Medicine